=== PATIENT | male | born 1955 | race Caucasian/White ===

== ENCOUNTER 2016-09-14 16:31 | Emergency (ER) | payer BC ==
[~2016-09-14] VITALS: Ht 182.9 cm; Wt 110.7 kg
[2016-09-14] MEDS ORDERED: LISINOPRIL20 MG PO (16:55)
[2016-09-14] MEDS ORDERED: METFORMIN HCL850 MG PO (16:55)
[2016-09-14] MEDS ORDERED: MOTRIN600 MG PO (18:11)
[2016-09-14 18:22] VITALS: BP 141/87
== END 2016-09-14 18:27 | disposition left against medical advice (07) ==
LOC: EME 16:31
DX: S82.891A Other fracture of right lower leg, initial encounter for closed fracture (principal); W17.89XA Other fall from one level to another, initial encounter
CPT/HCPCS: 73610; 99281; 99284

== ENCOUNTER 2017-01-08 00:20 | Emergency (ER) | payer BC ==
[~2017-01-08] VITALS: Ht 182.9 cm; Wt 111.1 kg
[~2017-01-08 00:20] MED LIST: LISINOPRIL20 MG PO; METFORMIN HCL850 MG PO; MOTRIN600 MG PO
[2017-01-08] MEDS ORDERED: NORCO 5/3251 TABLET PO (03:26)
[2017-01-08] MEDS ORDERED: PEN-VEE K,VEET500 MG PO (03:26)
[2017-01-08 03:49] VITALS: BP 160/91
== END 2017-01-08 03:50 | disposition home or self-care (01) ==
LOC: EME 00:20
PROC: 3E0T3BZ Introduction of Anesthetic Agent into Peripheral Nerves and Plexi, Percutaneous Approach (ICD-10-PCS; principal; 2017-01-08)
DX: K02.9 Dental caries, unspecified (principal)
CPT/HCPCS: 99281; 99283

== ENCOUNTER 2017-12-16 12:25 | Emergency (ER) | payer OTHER ==
[~2017-12-16] VITALS: Ht 182.9 cm; Wt 111.9 kg
[~2017-12-16 12:25] MED LIST changes: +NORCO 5/3251 TABLET PO; +PEN-VEE K,VEET500 MG PO
[2017-12-16 13:13] LABS: HEMATOCRIT 41.5 % (38.0-50.0); HEMOGLOBIN 14.1 G/DL (12.5-16.6); MCH 32.6 PG (29.0-34.0); MCV 95.8 FL (86-99); PLATELET COUNT 191 K/uL (156-360); RBC DIS.WIDTH-CV 12.7 % (11.8-14.6); RBC DIS.WIDTH-SD 45.4 % (39-53); RED BLOOD COUNT 4.33 M/uL (4.00-5.50); WHITE BLOOD COUNT 11.2 K/uL (4.1-10.2)
[2017-12-16 13:26] LABS: ALBUMIN 4.1 g/dL (3.2-4.8); CHLORIDE 102 mEq/L (99-109); POTASSIUM 4.5 mEq/L (3.7-5.4); SODIUM 137 mEq/L (136-147)
[2017-12-16 13:29] LABS: GLUCOSE 102 mg/dL (70-99); TOTAL PROTEIN 7.2 g/dL (6.4-8.3)
[2017-12-16 13:31] LABS: TOTAL BILIRUBIN 0.7 mg/dL (0.0-1.0)
[2017-12-16 13:32] LABS: ALKALINE PHOSPHATASE 91 IU/L (3-129); CREATININE 0.8 mg/dL (0.6-1.3); GFR ESTIMATE (CALCULATED) > 59 mL/min/ (58.99-99999)
[2017-12-16 13:33] LABS: UREA NITROGEN (BUN) 12 mg/dL (9-23)
[2017-12-16 13:34] LABS: AST (GOT) 20 IU/L (2-34)
[2017-12-16 13:35] LABS: ALT (GPT) 29 IU/L (3-49); URIC ACID 7.9 mg/dL (3.1-9.2)
[2017-12-16] MEDS ORDERED: COLCHICINE0.6 M1 PO ×2 (14:37→14:40)
[2017-12-16 14:45] VITALS: BP 136/75
== END 2017-12-16 13:50 | disposition home or self-care (01) ==
LOC: EME 12:25
PROVIDERS: Nurse Practitioner Family
DX: M10.9 Gout, unspecified (principal); M25.472 Effusion, left ankle; I10 Essential (primary) hypertension; E11.9 Type 2 diabetes mellitus without complications; Z79.84 Long term (current) use of oral hypoglycemic drugs; Z87.891 Personal history of nicotine dependence
CPT/HCPCS: 73610; 80053; 84550; 85027; 93971; 99281; 99284